=== PATIENT | female | born 1990 ===

== ENCOUNTER 2020-05-20 12:00 | Emergency (ER) | payer SELFPAY ==
[~2020-05-20] VITALS: Ht 160 cm; Wt 99.8 kg
[2020-05-20] MEDS ORDERED: WELLBUTRIN SR150 MG PO (12:09)
[2020-05-20] MEDS ORDERED: EFFEXOR XR150 MG PO (12:10)
--- NOTE | 2020-05-21 18:29 | EKG ---
[facility] [address] [facility] [place], [place] [address] Signed Normal sinus rhythm Normal ECG No previous ECGs available Confirmed by GELACIO KUMARI MD [id number] on 05/21/2020 6:29:37 PM Electronically Signed By: GELACIO KUMARI MD 05/21/20 1829 PATIENT NAME: DERRICK WERNER Electrocardiogram DATE OF : 89 PHYSICIAN: GELACIO KUMARI MD REPORT #: [id number] REPORT IS CONFIDENTIAL AND NOT TO BE RELEASED WITHOUT AUTHORIZATION
== END 2020-05-20 15:00 | disposition home or self-care (01) ==
LOC: ED 12:00
DX: U07.1 COVID-19 (principal); R07.89 Other chest pain; Z91.048 Other nonmedicinal substance allergy status; Z79.899 Other long term (current) drug therapy
CPT/HCPCS: 71045; 80053; 84484; 84703; 85025; 85379; 93005; 93010; 99285-25